=== PATIENT | female | born 1955 | race Caucasian/White ===

== ENCOUNTER → 2017-02-02 | Outpatient (CLI) | payer MEDICAID ==
[~2017-02-02] MED LIST: ALBU18HF IH; ASPI-496 PO; BUDE10.2 PO; CYCL-259 PO; FEXO180T15 PO; FLUT9.9S NS; LEVO88TA2 PO; LINA5TAB PO; LOSA50TA6 PO; METF10002 PO; MULT-717 PO; OMEP-110 PO; ONDA8TAB9 PO; OXYC-302 PO; PROP10TA PO; PSEU120T9 PO
[2017-02-02 14:15] LABS: ABG COLLECTION SITE LEFT RADIAL; COLLATERAL CIRCULATION TESTING NORMAL
== END | disposition home or self-care (01) ==
LOC: CVU 12:06
PROVIDERS: ATTEND Nurse Practitioner
DX: I51.7 Cardiomegaly (principal); E11.9 Type 2 diabetes mellitus without complications; Z87.891 Personal history of nicotine dependence
CPT/HCPCS: 36600; 82803; 93306

== ENCOUNTER → 2017-05-03 | Outpatient (CLI) | payer MEDICAID | END | disposition home or self-care (01) | LOC: CFH 13:17 | PROVIDERS: ATTEND Registered Nurse | DX: R06.02 Shortness of breath (principal); R06.09 Other forms of dyspnea; R05 Cough | CPT/HCPCS: 70490; 71250 ==

== ENCOUNTER → 2017-09-06 | Outpatient (CLI) | payer MEDICARE, MEDICAID ==
[~2017-09-06] MED LIST changes: +REGADENOSON 0.4 MG/5 ML SYRINGE ONE
== END ==
LOC: CVU 06:43
PROVIDERS: ATTEND Internal Medicine Cardiovascular Disease
DX: I11.9 Hypertensive heart disease without heart failure (principal); I25.5 Ischemic cardiomyopathy; Z87.891 Personal history of nicotine dependence
CPT/HCPCS: 78452; 93017; 93306; A9502; J2785